=== PATIENT | female | born 1940 | race Caucasian/White ===

== ENCOUNTER 2023-08-07 18:25 | Inpatient (IN) | payer MEDICARE ==
[~2023-08-07 18:25] MED LIST: Iopamidol-370 76% 500 ML MDV (1 ML CHARGE) ONE
[2023-08-07] MEDS ORDERED: HYDROcodone/Acetaminophen 5/325 mg Tablet PO PRN (19:08)
[2023-08-07] MEDS ORDERED: Glucagon 1 MG/ML KIT IM PRN (19:10)
[2023-08-07] MEDS ORDERED: Ondansetron PF 4 MG/2 ML Vial IVP PRN (19:10)
[2023-08-07] MEDS ORDERED: Acetaminophen 325 MG TAB PO PRN (19:10)
[2023-08-07] MEDS ORDERED: Dextrose 50% Abboject 50 ML SYRINGE SLOW IVP PRN (19:10)
[2023-08-07] MEDS ORDERED: Dextrose 5% in Water 1,000 ML IV PRN (19:10)
[2023-08-07 19:43] VITALS: BMI 26.4
[2023-08-07 20:27] LABS: Troponin I 0.014 ng/mL (< 0.028)
[2023-08-07] MEDS: sulfaSALAzine 500 MG TAB PO SCH (20:42)
[2023-08-08 03:43] LABS: #Basophils Less than 0.03 10x3/uL (0.0-0.2); %Basophils 0.3 % (0.0-1.0); %Eosinophils 2.3 % (0.0-10.0); %Lymphocytes 17.9 % (21.0-51.0); %Monocytes 11.2 % (0.0-10.0); %Neutrophils 68.1 % (42.0-75.0); Hematocrit 36.5 % (36.0-47.0); Hemoglobin 12.3 g/dL (12.0-16.0); Mean Corpuscular HGB CONC 33.7 g/dL (32.0-36.0); Mean Corpuscular Hemoglobin 32.3 pg (27.0-31.0); Mean Corpuscular Volume 95.8 fL (78.0-98.0); Mean Platelet Volume 10.7 fL (7.4-10.4); Platelet Count 311 10x3/uL (130-400); RBC Distribution Width 14.6 % (11.5-14.5); Red Blood Cell (RBC) Count 3.81 mill/uL (4.20-5.40)
[2023-08-08 03:53] LABS: Anion Gap 14 mmol/L (10-20); BUN (Urea Nitrogen) 12 mg/dL (9.8-20.1); Calc. Creatinine Clearance 63 mL/min (70-130); Calcium 9.2 mg/dL (7.8-10.44); Carbon Dioxide 27 mmol/L (23-31); Chloride 100 mmol/L (98-107); Estimated GFR 82; Glucose 147 mg/dL (83-110); Potassium 3.8 mmol/L (3.5-5.1); Sodium 137 mmol/L (136-145)
[2023-08-08 07:48] VITALS: BP 179/87; TEMP 97.8
[2023-08-08] MEDS: glipiZIDE 10 MG TAB PO SCH (07:54)
[2023-08-08] MEDS: Lisinopril 2.5 MG TAB PO SCH (07:54)
[2023-08-08] MEDS: Fish Oil 1,000 MG CAP PO SCH (07:55)
[2023-08-08] MEDS: metFORMIN 500 MG TAB PO SCH (07:55)
[2023-08-08] MEDS: Losartan 25 MG TAB PO SCH (11:42)
[2023-08-08 13:41] LABS: Fluid, pH - Pleural Fld Greater than 7.500 (7.60 - 7.66)
[2023-08-08 13:53] LABS: Pleural Fluid, Protein 4.5 g/dL
[2023-08-08 14:02] LABS: RBC Count-Automated (BF) 830 /cu.mm; WBC/Nucleated-Auto (BF) 1273 /cu.mm
[2023-08-08 14:04] LABS: Body Fluid Source Pleural Fluid; Tube # EDTA
[2023-08-08 14:05] LABS: BF Color Yellow; Clarity Hazy (Clear)
[2023-08-08 14:39] LABS: BF Segmented Neutrophils 6 %; Cell Count Non Hematic 18 %; Eosinophils 7 %; Lymphocytes 69 %
[2023-08-09] MEDS ORDERED: Losartan 25 MG TAB PO SCH (09:00)
== END 2023-08-08 15:24 | disposition home or self-care (01) | DRG 187 ==
LOC: T4-A 18:46
PROVIDERS: ADMIT Internal Medicine; ATTEND Internal Medicine
PROC: 0W9B3ZZ Drainage of Left Pleural Cavity, Percutaneous Approach (ICD-10-PCS; principal; 2023-08-08)
DX: J90 Pleural effusion, not elsewhere classified (principal); K50.90 Crohn's disease, unspecified, without complications; I10 Essential (primary) hypertension; E11.9 Type 2 diabetes mellitus without complications; Z90.49 Acquired absence of other specified parts of digestive tract; Z87.891 Personal history of nicotine dependence
CPT/HCPCS: 36415; 36416; 71045; 71260; 80048; 80053; 82150; 82945; 83615; 83880; 83986; 84155; 84157; 84478; 84484; 85025; 85060; 87116; 87206; 88112; 88305; 88341; 88342; 89051; 93005; J1642; Q9967

== ENCOUNTER 2023-11-15 23:23 | Observation (INO) | payer MEDICARE ==
[2023-11-16 00:52] LABS: #Basophils Less than 0.03 10x3/uL (0.0-0.2); #Eosinphils Less than 0.03 10x3/uL (0.0-0.7); %Basophils 0.4 % (0.0-1.0); %Lymphocytes 11.5 % (21.0-51.0); %Monocytes 6.9 % (0.0-10.0); %Neutrophils 79.7 % (42.0-75.0); Hematocrit 26.1 % (36.0-47.0); Hemoglobin 8.7 g/dL (12.0-16.0); Mean Corpuscular HGB CONC 33.3 g/dL (32.0-36.0); Mean Corpuscular Hemoglobin 30.7 pg (27.0-31.0); Mean Corpuscular Volume 92.2 fL (78.0-98.0); Mean Platelet Volume 10.5 fL (7.4-10.4); Platelet Count 210 10x3/uL (130-400); RBC Distribution Width 16.8 % (11.5-14.5); Red Blood Cell (RBC) Count 2.83 mill/uL (4.20-5.40)
[2023-11-16 01:22] LABS: ALT (SGPT) 25 U/L (8-55); AST (SGOT) 75 U/L (5-34); Albumin 2.4 g/dL (3.4-4.8); Alkaline Phosphatase 97 U/L (40-110); Anion Gap 21 mmol/L (10-20); BUN (Urea Nitrogen) 20 mg/dL (9.8-20.1); Bilirubin, Total 0.6 mg/dL (0.2-1.2); Calc. Creatinine Clearance 0 mL/min (70-130); Calcium 8.8 mg/dL (7.8-10.44); Carbon Dioxide 26 mmol/L (23-31); Chloride 92 mmol/L (98-107); Estimated GFR 60; Globulin 4.7 g/dL (2.4-3.5); Glucose 156 mg/dL (83-110); Potassium 4.1 mmol/L (3.5-5.1); Protein, Total 7.1 g/dL (5.8-8.1); Sodium 135 mmol/L (136-145)
[2023-11-16 01:44] LABS: Actual Bicarbonate (HCO3v) 25.2 mEq/L (22-28); Base Excess 2.3 mEq/L (-2.0 to +3.0); Calcium, Ionized (venous) 0.96 mmol/L (1.16-1.32); Chloride (VBG) 92 mmol/L (98-106); Hematocrit-VBG 29 % (36.0-47.0); Hemoglobin (Hb) 9.8 g/dL (11.7-16.1); Potassium (VBG) 3.55 mmol/L (3.70-5.30); Sodium 132 mmol/L (133-146); pH (venous) 7.507 (7.32-7.43)
[2023-11-16] MEDS ORDERED: Iopamidol-370 76% 500 ML MDV (1 ML CHARGE) ONE (07:23)
[2023-11-16 08:57] VITALS: BMI 23.6
[2023-11-16] MEDS ORDERED: Loperamide HCl 2 MG CAP PO PRN (09:45)
[2023-11-16] MEDS ORDERED: Ondansetron PF 4 MG/2 ML Vial IVP PRN (09:45)
[2023-11-16] MEDS ORDERED: Ketorolac Tromethamine 30 MG (1 mL) VIAL IVP PRN (09:45)
[2023-11-16] MEDS ORDERED: Nitroglycerin 0.4 MG TAB (25 Tab Bottle) SL PRN (09:49)
[2023-11-16] MEDS ORDERED: Ondansetron ODT 4 MG TAB PO PRN (09:49)
[2023-11-16 12:15] LABS: Troponin I 0.036 ng/mL (< 0.028)
[2023-11-16] MEDS: Ipratropium/Albuterol 3 ML NEB NEB SCH (13:25)
[2023-11-16] MEDS: Acetaminophen 325 MG TAB PO SCH (14:18)
[2023-11-16 16:15] VITALS: BP 133/81; TEMP 98.1
[2023-11-16] MEDS ORDERED: sulfaSALAzine 500 MG TAB PO SCH (21:00)
[2023-11-16] MEDS ORDERED: Atorvastatin Calcium 40 MG TAB PO SCH (21:00)
[2023-11-16] MEDS ORDERED: Mirtazapine 15 MG TAB PO SCH (21:00)
[2023-11-16] MEDS ORDERED: Amoxicillin/Potassium Clav 875 MG TAB PO SCH (21:00)
[2023-11-16] MEDS ORDERED: Insulin Glargine 30 UNITS/0.3 ML VIAL SC SCH (21:00)
[2023-11-16] MEDS ORDERED: Senokot S 8.6-50 MG TAB PO SCH (21:00)
[2023-11-17] MEDS ORDERED: Furosemide 40 MG TAB PO SCH (07:30)
[2023-11-17] MEDS ORDERED: glipiZIDE 10 MG TAB PO SCH (07:30)
[2023-11-17] MEDS ORDERED: Multivit, Therapeutic 1 TAB PO SCH (09:00)
[2023-11-17] MEDS ORDERED: Azithromycin 250 MG TAB PO SCH (09:00)
[2023-11-17] MEDS ORDERED: azaTHIOprine 50 MG TAB PO SCH (09:00)
[2023-11-17] MEDS ORDERED: Non-Formulary Item 1 EACH (Cholecalciferol (Vitamin D3) [Vitamin D3] 1,250 MCG Capsule) PO SCH (09:00)
[2023-11-17] MEDS ORDERED: Pantoprazole DR 40 MG TAB PO SCH (09:00)
[2023-11-17] MEDS ORDERED: Non-Formulary Item 1 EACH (Folic Acid [Folic Acid] 0.8 MG Tablet) PO SCH (09:00)
[2023-11-17] MEDS ORDERED: Cholecalciferol 1,000 UNITS (25 MCG) TAB PO SCH (09:00)
[2023-11-17] MEDS ORDERED: Non-Formulary Item 1 EACH (Cyanocobalamin (Vitamin B-12) [Vitamin B12] 2,500 MCG Tablet) PO SCH (09:00)
[2023-11-17] MEDS ORDERED: Folic Acid 1 MG TAB PO SCH (09:00)
[2023-11-17] MEDS ORDERED: Aspirin Chewable 81 MG TAB PO SCH (09:00)
[2023-11-17] MEDS ORDERED: Cyanocobalamin (Vitamin B-12) 1,000 MCG TAB PO SCH (09:00)
[2023-11-17] MEDS ORDERED: Non-Formulary Item 1 EACH (Multivitamin [Multi-Vitamin Daily] 1 TABLET Tablet) PO SCH (09:00)
== END 2023-11-16 16:26 | disposition home health service (06) ==
LOC: ERS 23:23 → ERHOLD 11-16 04:02 → 2SE 11-16 07:16
PROVIDERS: ADMIT Student in an Organized Health Care Education/Training Program; ATTEND Student in an Organized Health Care Education/Training Program
DX: J96.01 Acute respiratory failure with hypoxia (principal); C34.90 Malignant neoplasm of unspecified part of unspecified bronchus or lung; E11.9 Type 2 diabetes mellitus without complications; I48.91 Unspecified atrial fibrillation; I25.10 Atherosclerotic heart disease of native coronary artery without angina pectoris; D72.819 Decreased white blood cell count, unspecified; D64.9 Anemia, unspecified; I11.0 Hypertensive heart disease with heart failure; I50.20 Unspecified systolic (congestive) heart failure; K56.609 Unspecified intestinal obstruction, unspecified as to partial versus complete obstruction; Z79.84 Long term (current) use of oral hypoglycemic drugs; Z79.899 Other long term (current) drug therapy; Z79.82 Long term (current) use of aspirin; Z79.4 Long term (current) use of insulin; Z87.891 Personal history of nicotine dependence
CPT/HCPCS: 71045; 71275; 80053; 82805; 83605; 83880; 84484 ×2; 85025; 87040; 93005; 94640; 97139; 99285; Q9967; 36415; J7620